=== PATIENT | female | born 1965 | race Caucasian/White ===

== ENCOUNTER → 2023-08-04 08:18 | Outpatient (REF) | payer OTHER, SELFPAY | LOC: RAD 08:18 | PROVIDERS: ATTENDING PHYSICIAN Physician Assistant Medical | DX: R74.8 Abnormal levels of other serum enzymes (principal); Z78.0 Asymptomatic menopausal state | CPT/HCPCS: 76700; 77080 ==

== ENCOUNTER → 2023-12-14 12:27 | Outpatient (REF) | payer OTHER, SELFPAY | LOC: WDC 12:27 | PROVIDERS: ATTENDING PHYSICIAN Physician Assistant Medical | DX: Z12.31 Encounter for screening mammogram for malignant neoplasm of breast (principal) | CPT/HCPCS: 77063; 77067 ==

== ENCOUNTER → 2024-04-11 08:14 | Outpatient (REF) | payer OTHER, SELFPAY | LOC: WDC 08:14 | PROVIDERS: ATTENDING PHYSICIAN Physician Assistant Medical | DX: N64.4 Mastodynia (principal) | CPT/HCPCS: 76642 ==

== ENCOUNTER 2024-10-23 08:59 | Outpatient (RCR) | payer OTHER, SELFPAY ==
[2024-10-23 09:09] VITALS: BP 122/78
[2024-10-23] MEDS: EVENITY 105 MG SC ×2 (09:28→09:29)
[2024-10-23 10:00] VITALS: BP 117/64
== END 2024-10-24 10:34 | disposition home or self-care (01) ==
LOC: OID 08:59
PROVIDERS: ATTENDING PHYSICIAN Internal Medicine Endocrinology, Diabetes & Metabolism; FAMILY PHYSICIAN Physician Assistant Medical
DX: M81.0 Age-related osteoporosis without current pathological fracture (principal)
CPT/HCPCS: 96372; J3111

== ENCOUNTER 2024-11-26 09:15 | Outpatient (RCR) | payer OTHER, SELFPAY ==
[2024-11-26 09:25] VITALS: BP 123/70
[2024-11-26] MEDS: EVENITY 105 MG SC ×2 (09:32)
== END 2024-11-27 10:49 | disposition home or self-care (01) ==
LOC: OID 09:15
PROVIDERS: ATTENDING PHYSICIAN Internal Medicine Endocrinology, Diabetes & Metabolism; FAMILY PHYSICIAN Physician Assistant Medical
DX: M81.0 Age-related osteoporosis without current pathological fracture (principal)
CPT/HCPCS: 96372; J3111

== ENCOUNTER 2024-12-28 09:02 | Outpatient (RCR) | payer OTHER, SELFPAY ==
[2024-12-28 09:23] VITALS: BP 93/68
[2024-12-28] MEDS: EVENITY 105 MG SC ×2 (09:36→09:37)
== END 2024-12-31 09:58 | disposition home or self-care (01) ==
LOC: OID 09:02
PROVIDERS: ATTENDING PHYSICIAN Internal Medicine Endocrinology, Diabetes & Metabolism; FAMILY PHYSICIAN Physician Assistant Medical
DX: M81.0 Age-related osteoporosis without current pathological fracture (principal)
CPT/HCPCS: 96372; J3111

== ENCOUNTER 2025-01-29 09:16 | Outpatient (RCR) | payer OTHER, SELFPAY ==
[2025-01-29 09:20] VITALS: BP 111/72
[2025-01-29] MEDS: EVENITY 105 MG SC ×2 (09:37→09:38)
== END 2025-01-29 15:35 | disposition home or self-care (01) ==
LOC: OID 09:16
PROVIDERS: ATTENDING PHYSICIAN Internal Medicine Endocrinology, Diabetes & Metabolism; FAMILY PHYSICIAN Physician Assistant Medical
DX: M81.0 Age-related osteoporosis without current pathological fracture (principal)
CPT/HCPCS: 96372; J3111

== ENCOUNTER 2025-03-01 09:19 | Outpatient (RCR) | payer OTHER, SELFPAY ==
[2025-03-01 09:25] VITALS: BP 116/70
[2025-03-01] MEDS: EVENITY 105 MG SC ×2 (09:38)
== END 2025-03-04 09:32 | disposition home or self-care (01) ==
LOC: OID 09:19
PROVIDERS: ATTENDING PHYSICIAN Internal Medicine Endocrinology, Diabetes & Metabolism; FAMILY PHYSICIAN Physician Assistant Medical
DX: M81.0 Age-related osteoporosis without current pathological fracture (principal)
CPT/HCPCS: 96372; J3111

== ENCOUNTER 2025-04-02 09:12 | Outpatient (RCR) | payer OTHER, SELFPAY ==
[2025-04-02 09:28] VITALS: BP 118/78
[2025-04-02] MEDS: EVENITY 105 MG SC ×2 (09:36)
== END 2025-04-03 08:17 | disposition home or self-care (01) ==
LOC: OID 09:12
PROVIDERS: ATTENDING PHYSICIAN Internal Medicine Endocrinology, Diabetes & Metabolism; FAMILY PHYSICIAN Physician Assistant Medical
DX: M81.0 Age-related osteoporosis without current pathological fracture (principal)
CPT/HCPCS: 96372; J3111

== ENCOUNTER 2025-05-03 09:50 | Outpatient (RCR) | payer OTHER, SELFPAY ==
[2025-05-03 10:23] VITALS: BP 110/71
[2025-05-03 10:24] VITALS: BMI 28.5
[2025-05-03] MEDS: EVENITY 105 MG SC ×2 (10:44→10:46)
== END 2025-05-06 08:12 | disposition home or self-care (01) ==
LOC: OID 09:50
PROVIDERS: ATTENDING PHYSICIAN Internal Medicine Endocrinology, Diabetes & Metabolism; FAMILY PHYSICIAN Physician Assistant Medical
DX: M81.0 Age-related osteoporosis without current pathological fracture (principal)
CPT/HCPCS: 96372; J3111